=== PATIENT | male | born 1985 | race African-American/Black ===

== ENCOUNTER 2023-02-24 13:48 | Emergency (ER) | payer SELFPAY ==
[2023-02-24 14:46] LABS: BASOPHILS # (AUTO) 0.1 10^3/uL (0.0-0.1); BASOPHILS % (AUTO) 1.2 %; EOSINOPHILS # (AUTO) 0.2 10^3/uL (0.0-0.7); EOSINOPHILS % (AUTO) 2.1 %; HCT - HEMATOCRIT 47.8 % (42.0-52.0); HGB - HEMOGLOBIN 16.8 g/dL (14.0-18.0); LYMPHOCYTES # (AUTO) 2.5 10^3/uL (1.5-3.5); LYMPHOCYTES % (AUTO) 32.9 %; MEAN CORPUSCULAR HEMOGLOBIN 32.7 pg (27.0-31.0); MEAN CORPUSCULAR HGB CONC 35.1 g/dL (32.0-36.0); MEAN PLATELET VOLUME 9.1 fL (7.4-11.4); MONOCYTES # (AUTO) 0.9 10^3/uL (0.0-1.0); MONOCYTES % (AUTO) 11.5 %; NEUTROPHILS # (AUTO) 3.8 10^3/uL (1.5-6.6); NEUTROPHILS % (AUTO) 51.4 %; PLT - PLATELET COUNT 303 10^3/uL (130-450); RED BLOOD COUNT 5.14 10^6/uL (4.70-6.10); RED CELL DISTRIBUTION WIDTH 11.9 % (12.0-15.0); WHITE BLOOD COUNT 7.5 x10^3/uL (4.8-10.8)
[2023-02-24 14:59] LABS: ALBUMIN 4.7 g/dL (3.2-5.5); ALBUMIN/GLOBULIN RATIO 1.4 (1.0-2.2); BILIRUBIN,TOTAL 0.5 mg/dL (0.2-1.0); CALCIUM 9.7 mg/dL (8.5-10.3); CREATININE 1.2 mg/dL (0.6-1.3); POTASSIUM 4.2 mmol/L (3.5-4.5)
--- NOTE | 2023-02-24 15:30 | ED Physician Documentation ---
PD HPI GI BLEED - Stated complaint Stated Complaint: MALE - Chief complaint Chief Complaint: Abd Pain - History obtained from History obtained from: Patient - History of Present Illness Timing - onset: How many days ago (3) Timing - duration: Days (3) Timing - details: Abrupt onset (he had a firmer BM with some grunting to expel it and noted onset of rectal pain then red blood with wiping and some in toilet bowl. Stool itself did not look bloody nor melena. Has continued with burning/aching pain at rectum since, worse with BM, even though not as firm. No abd pain.), Still present Associated symptoms: BRBPR Similar symptoms before: Has not had sx before Review of Systems Constitutional: denies: Fever, Chills GI: reports: Constipation, Bloody / black stool. denies: Abdominal Pain, Abdominal Swelling, Nausea, Vomiting Skin: denies: Rash, Lesions PD PAST MEDICAL HISTORY - Past Medical History Past Medical History: No GI: None - Past Surgical History Past Surgical History: Yes - Present Medications Home Medications: Ambulatory Orders Medication Instructions Recorded Confirmed Docusate Sodium 100Mg Capsule 100 mg PO DAILY #20 cap 02/24/23 [Colace 100Mg Capsule] HYDROcod/ACETAM 5/325 [Cactus 5/325] 1 ea PO Q6H PRN #10 tablet 02/24/23 Hydrocortisone Supp [Anusol-Hc] 25 mg NV DAILY 5 Days #5 supp 02/24/23 Meloxicam [Mobic] 7.5 mg PO BID 10 Days #20 tablet 02/24/23 - Allergies Allergies/Adverse Reactions: Allergies Allergy/AdvReac Type Severity Reaction Status Date / Time No Known Drug Allergies Allergy Verified 02/24/23 14:27 - Social History Does the pt smoke?: Yes Smoking Status: Current every day smoker PD ED PE NORMAL - Vitals Vital signs reviewed: Yes - General General: Alert and oriented X 3, Well developed/nourished, Other (appears uncomfortable due to rectal pain.) - Abdomen Abdomen: Soft, Non tender, Non distended - Male Male : Deferred - Rectal Rectal: Other (externally, just small nontender hemorrhoid. Digital exam with marked tenderness. Fullness/swelling just inside rectum c/w internal hemorrhoid. Was not hard, so not feeling thrombosed. ) - Derm Derm: Normal color, Warm and dry, No rash Results - Vitals Vitals: Vital Signs - 24 hr 02/24/23 02/24/23 14:24 16:19 Temperature 36.3 C L Heart Rate 85 62 Respiratory 20 18 Rate Blood Pressure 171/99 H 156/111 H O2 Saturation 100 98 - Labs Labs: Laboratory Tests 02/24/23 02/24/23 14:43 14:43 WBC 7.5 RBC 5.14 Hgb 16.8 Hct 47.8 MCV 93.0 MCH 32.7 H MCHC 35.1 RDW 11.9 L Plt Count 303 MPV 9.1 Neut # (Auto) 3.8 Lymph # (Auto) 2.5 [place] # (Auto) 0.9 Eos # (Auto) 0.2 Baso # (Auto) 0.1 Absolute Nucleated RBC 0.00 Nucleated RBC % 0.0 Sodium 138 Potassium 4.2 Chloride 104 Carbon Dioxide 28 Anion Gap 6.0 BUN 15 Creatinine 1.2 Estimated GFR (MDRD) 82 L Glucose 123 H Calcium 9.7 Total Bilirubin 0.5 AST 19 ALT 17 Alkaline Phosphatase 54 Total Protein 8.0 Albumin 4.7 Globulin 3.3 Albumin/Globulin Ratio 1.4 Lipase 49 PD Medical Decision Making - ED course Complexity details: considered differential (rectal pain after firm BM with red blood and rectal tenderness. Digital exam feels like internal hemorrhoid. Shared decision [facility] pt treat as that adn f/u or return if not improved and can move toward anoscopy/ surgery consult/ etc.), d/w patient Departure - Departure Disposition: 01 Home, Self Care Clinical Impression: Rectal pain, Internal hemorrhoid, bleeding Condition: Stable Record reviewed to determine appropriate education?: Yes Instructions: ED Hemorrhoids Follow-Up: Eddie Bush MD [Provider Admit Priv/Credential] - Shayan العلي MD [Provider Admit Priv/Credential] - Prescriptions: Hydrocortisone Supp [Anusol-Hc] 25 mg NV DAILY 5 Days #5 supp Docusate Sodium 100Mg Capsule [Colace 100Mg Capsule] 100 mg PO DAILY #20 cap Meloxicam [Mobic] 7.5 mg PO BID 10 Days #20 tablet HYDROcod/ACETAM 5/325 [Cactus 5/325] 1 ea PO Q6H PRN #10 tablet PRN Reason: Pain Comments: There are small external hemorrhoids but they do not look very swollen. I do feel enlargement and swelling of internal hemorrhoids on exam. This would fit with your symptoms. I would treat this with a combination of anti-inflammatories both orally and suppository steroid version for 3 to 5 days. Add Tylenol every 4-6 hours if needed for pain or hydrocodone if needed for worse pain. I would also use a docusate stool softener daily for the next several days to week. Use it twice daily if you get firm stools as that will further irritate the hemorrhoids. I would anticipate improvement over the next several days with resolution by 3 to 4 days. Recheck if not better improving steadily during that timeframe. You could also follow-up with general surgery if not fully improved with consideration of intervention on the hemorrhoids. I sent your prescriptions to your preferred pharmacy. I am prescribing a short course of narcotic pain medication for you. These are potentially dangerous and addictive medications that should be used carefully. These medications may constipate you. Take an [id number] stool softener such as docusate twice daily with plenty of water while taking these medications. If you go 24 hours without a bowel movement, take [id number] MiraLAX, per package instructions. Do not drink or drive while taking these medications. If you received narcotic or sedating medications while in the emergency department do not drive for 24 hours. Store this medication in a safe, secure place and out of reach of children. It is a violation of federal law to give or sell this medication to another person or to use in a manner other than prescribed. The ED will not refill narcotic prescriptions, including prescriptions lost or stolen. You can dispose of unwanted medications at the [facility]'s office or at several pharmacies such as [facility]. Forms: PCP List Discharge Date/Time: 02/24/23 16:19
[2023-02-24] MEDS ORDERED: KETOROLAC 30 MG/ML VIAL IM STA (15:48)
[2023-02-24] MEDS ORDERED: DOCUSATE SODIUM 100 MG CAPSULE PO STA (15:48)
[2023-02-24] MEDS ORDERED: ACETAMINOPHEN 325 MG TABLET PO STA (15:48)
[2023-02-24 16:24] VITALS: BP 156/111; O2SAT 98
== END 2023-02-24 16:19 | disposition home or self-care (01) ==
LOC: ED 13:48
DX: K64.8 Other hemorrhoids (principal); K62.89 Other specified diseases of anus and rectum; F17.200 Nicotine dependence, unspecified, uncomplicated
CPT/HCPCS: 36415; 80053; 83690; 85025; 96372; 99283; 99284; A9270